=== PATIENT | female | born 1980 | race Two or more races ===

== ENCOUNTER 2016-08-26 09:12 | Emergency (ER) | payer MEDICAID ==
[2016-08-26 09:24] VITALS: TEMP 98.2; O2SAT 93
[2016-08-26 09:46] VITALS: BP 144/94; PULSE 90; RESP 16
--- NOTE | 2016-08-26 09:52 | UCPHY ---
H & P Patient Type: New Chief Complaint Nursing Narrative: hx asthma 3 weeks cough/uri symptoms Time Seen by Provider: 08/26/16 09:31 HPI/ROS: Chief complaint: Fever, cough, earache, asthma HPI: 36-year-old female with a history of asthma presenting with 3 weeks of worsening fevers and chills, sinus congestion, earache, sore throat, cough and worsening asthma symptoms. Patient states she has a fever to 101 at home the last few days. Cough is nonproductive. She has had some body aches. She has been using her albuterol inhaler with increased frequency and has run out at this point. Has had some mild shortness of breath. No nausea or vomiting. No chest pain. No abdominal pain. No skin rashes. ROS: 10 point Review of Systems is negative except as noted in the HPI. Physical exam: Gen: Awake, Alert, No Distress HEENT: Nose: no rhinorrhea Eyes: PERRLA, EOMI Mouth: Moist mucosa Neck: Supple, no JVD Chest: nontender, diffuse mild expiratory wheezing particularly at the bases, no focal rhonchi Heart: S1, S2 normal, no murmur Abd: Soft, non-tender, no guarding Back: no CVA tenderness, no midline tenderness Ext: no edema, non-tender Skin: no rash Neuro: CN II-XII intact, Sensation grossly intact, Strength 5/5 in bilateral upper and lower extremities - Personal History LMP (Females 10-55): Over 28 Days Ago Current Tetanus/Diphtheria Vaccine: Unsure - Medical/Surgical History Hx Asthma: Yes Hx Chronic Respiratory Disease: No Hx Diabetes: No Hx Cardiac Disease: No Hx Renal Disease: No Hx Cirrhosis: No Hx Alcoholism: No Hx HIV/AIDS: No Hx Splenectomy or Spleen Trauma: No Other PMH: anemia - Family History Significant Family History: No pertinent family hx - Social History Smoking Status: Never smoked Constitutional: Initial Vital Signs Temperature (C) 36.8 C 08/26/16 09:20 Heart Rate 96 08/26/16 09:20 Respiratory Rate 18 08/26/16 09:20 Blood Pressure 200/108 H 08/26/16 09:20 O2 Sat (%) 93 08/26/16 09:20 O2 Delivery Mode Room Air Allergies/Adverse Reactions: acetaminophen [From Vicodin] Allergy (Verified 08/26/16 09:19) hydrocodone bitartrate [From Vicodin] Allergy (Verified 08/26/16 09:19) promethazine HCl [From Phenergan] Allergy (Verified 08/26/16 09:19) Sulfa (Sulfonamide Antibiotics) Allergy (Verified 08/26/16 09:18) Home Medications: Medication Instructions Recorded AZITHROMYCIN [Z-PACK] 250 mg PO DAILY #6 tab 08/26/16 Advair 500/50 (*) 08/26/16 Albuterol 08/26/16 Albuterol [Ventolin Hfa Inhaler] 200 puffs IH Q4 #1 mdi 08/26/16 Celexa 08/26/16 Guaifenesin/Codeine Phos [Codeine 10 ml PO Q4 #1 liquid 08/26/16 10 mg-Guai 300 mg Liq] ZYRTEC 08/26/16 Departure - Departure Disposition: Home, Routine, Self-Care Clinical Impression: Bronchitis, Asthma Instructions: Acute Bronchitis (ED), Bronchospasm (ED) Additional Instructions: Take your full course of antibiotics. Return Urgent Care go to a emergency department for worsening shortness of breath, fevers, chills, nausea, vomiting, or any other concerns. Follow up at [facility] in 3-4 days if symptoms are not improving. Referrals: NONE *PRIMARY CARE P,. [Primary Care Provider] - As per Instructions [facility] [Outside] - As per Instructions Prescriptions: Guaifenesin/Codeine Phos [Codeine 10 mg-Guai 300 mg Liq] 10 ml PO Q4 #1 liquid Albuterol [Ventolin Hfa Inhaler] 200 puffs IH Q4 #1 mdi AZITHROMYCIN [Z-PACK] 250 mg PO DAILY #6 tab - PQRS PQRS Measurement: NA
== END 2016-08-26 09:56 | disposition home or self-care (01) ==
LOC: CED 09:12
DX: J45.909 Unspecified asthma, uncomplicated (principal)
CPT/HCPCS: 99204-PO; G0463-PO

== ENCOUNTER 2017-02-04 20:16 | Emergency (ER) | payer MEDICAID ==
[2017-02-04 20:38] VITALS: BP 135/95; PULSE 89; RESP 16; TEMP 99; O2SAT 96
--- NOTE | 2017-02-04 21:21 | EDPHY ---
H & P Stated Complaint: 1-2 wks of left neck gland swelling . N/D/VAZQUEZ/fever on/off Time Seen by Provider: 02/04/17 20:21 HPI/ROS: CHIEF COMPLAINT: Left jaw swelling History by patient HISTORY OF PRESENT ILLNESS: 28-year-old woman presents complaining of painful lump at the angle of her left jaw which she says has been there for about 10 days. She describes it as painful and tender to touch. She has had some relief from ibuprofen. She has had some intermittent fevers and felt sweaty. She has also had diarrhea for the past several days. It is also sees who with a sore throat. She denies any tooth pain or recent dental work. She has a history of chronic muscle pain for which she has been on Percocet in the past. She is currently between primary care physicians. REVIEW OF SYSTEMS: As in HPI, and all other systems reviewed and are negative Source: Patient - Personal History LMP (Females 10-55): Unknown Current Tetanus/Diphtheria Vaccine: Unsure Current Tetanus Diphtheria and Acellular Pertussis (TDAP): Unsure - Medical/Surgical History Hx Asthma: Yes Hx Chronic Respiratory Disease: No Hx Diabetes: No Hx Cardiac Disease: No Hx Renal Disease: No Hx Cirrhosis: No Hx Alcoholism: No Hx HIV/AIDS: No Hx Splenectomy or Spleen Trauma: No Other PMH: anemia/Asthma /allergies seasonal. Uterine ablation. Medicinal marijuana. anxiety. csec x2 //tonsilectomy - Family History Significant Family History: No pertinent family hx - Social History Smoking Status: Current some day smoker - Physical Exam Exam: General Appearance: Alert and no distress. Obese Head: normocephalic, atraumatic, no sinus tenderness Eyes: Pupils equal and round no injection. Ears: TM clear bilat Positive 2 x 2 tender swollen mass at the angle of the left jaw, no redness OP: mucus membranes moist, no tonsillar enlargement, no exudates, no purulence from parotid duct Neck: no meningismus, no cervical nodes, no submandibular nodes Respiratory: Chest is nontender, lungs are clear to auscultation. Cardiac: regular rate and rhythm. Gastrointestinal: Abdomen is soft and nontender, no masses, bowel sounds normal. Musculoskeletal: Neck is supple and nontender. Extremities have full range of motion and are nontender. Skin: No rashes or lesions. Constitutional: Initial Vital Signs Temperature (C) 37.2 C 02/04/17 20:32 Heart Rate 89 02/04/17 20:32 Respiratory Rate 16 02/04/17 20:32 Blood Pressure 135/95 H 02/04/17 20:32 O2 Sat (%) 96 02/04/17 20:32 O2 Delivery Mode Room Air Allergies/Adverse Reactions: acetaminophen [From Vicodin] Allergy (Verified 02/04/17 20:38) hydrocodone bitartrate [From Vicodin] Allergy (Verified 02/04/17 20:38) promethazine HCl [From Phenergan] Allergy (Verified 02/04/17 20:38) Sulfa (Sulfonamide Antibiotics) Allergy (Verified 02/04/17 20:38) Home Medications: Medication Instructions Recorded Advair 500/50 (*) 08/26/16 Albuterol 08/26/16 Albuterol [Ventolin Hfa Inhaler] 200 puffs IH Q4 #1 mdi 08/26/16 Celexa 08/26/16 ZYRTEC 08/26/16 Cephalexin 500 mg PO TID #40 tablet 02/04/17 Prilosec 20 mg 02/04/17 Sudafed 30mg (OTC) 02/04/17 Medical Decision Making ED Course/Re-evaluation: 28-year-old woman presents with painful swollen lump at her left trauma with clinical picture of parotid stone and/or mild silaadenitis. Patient is afebrile here and hemodynamically stable and nontoxic-appearing. We will start her on Keflex and we discussed conservative measures such as sucking on sour candy. I recommended continuing Tylenol and ibuprofen for pain. Patient has been on chronic Percocet in the past for chronic pain and we discussed that this is not a good or safe medicine for chronic conditions. Patient is referred to ENT if she has persistent or worsening symptoms. Departure - Departure Disposition: Home, Routine, Self-Care Clinical Impression: Sialadenitis Condition: Good Instructions: Sialoadenitis (ED) Additional Instructions: You were seen by Dr. Simi Nick today. Return for any worsening or new concerns. Take Keflex as directed. Suck on sour things such as lemon drops. Take Tylenol and ibuprofen as needed for pain as well as applying warm compresses. Follow up with Ear Nose Throat specialist, Dr. Navarro, if you do not improve or there is worsening. Take probiotics once daily in between doses antibiotics. Referrals: NONE *PRIMARY CARE P,. [Primary Care Provider] - As per Instructions Yuliya Navarro MD [Medical Doctor] - As per Instructions Prescriptions: Cephalexin 500 mg PO TID #40 tablet
[2017-02-04] MEDS ORDERED: ACETAMINOPHEN 325 MG TAB PO ONE (21:32)
[2017-02-04] MEDS ORDERED: CEPHALEXIN 500MG PREPACK#4 BTL TAKEHOME ONE (21:32)
[2017-02-04] MEDS ORDERED: ACETAMINOPHEN 500 MG TAB ONE (21:34)
== END 2017-02-04 21:45 | disposition home or self-care (01) ==
LOC: CED 20:16
DX: K11.20 Sialoadenitis, unspecified (principal); J45.909 Unspecified asthma, uncomplicated; F17.200 Nicotine dependence, unspecified, uncomplicated

== ENCOUNTER 2017-09-27 19:36 | Emergency (ER) | payer MEDICAID ==
[2017-09-27] MEDS ORDERED: IPRATROPIUM/ALBUTEROL 3 ML DEYVIAL IH ONE (19:55)
[2017-09-27] MEDS ORDERED: predniSONE 20 MG TAB PO ONE (19:55)
--- NOTE | 2017-09-27 19:58 | EDPHY ---
H & P Stated Complaint: trouble breathing in asthmatic pt x 2 weeks. inhalers/nebs not helping. Time Seen by Provider: 09/27/17 19:39 HPI/ROS: Chief Complaint: Difficulty breathing HPI: 37-year-old woman with a history of asthma presenting with 2 weeks of worsening difficulty breathing and wheezing. She states her normal inhalers have not been helping. She has been compliant with her usual asthma medications. Symptoms feel similar to prior bronchitis exacerbations of her asthma. No fevers or chills. Cough is nonproductive. Some shortness of breath with exertion. No chest pain. No nausea or vomiting. Also complaining of some mild right ear pain. She did take a prednisone burst 2 weeks ago for 3 days with mild improvement. She is not currently seen by [facility], she is to be seen at [facility] stopped going. She does have a local primary care physician. ROS: 10 point Review of Systems is negative except as noted in the HPI. PMH: Asthma Social History: No smoking, no alcohol, no recreational drug use Family History: non-contributory Physical Exam: Gen: Awake, Alert, No Distress HEENT: Ears: Bilateral TMs are normal Nose: no rhinorrhea Eyes: PERRLA, EOMI Mouth: Moist mucosa Neck: Supple, no JVD Chest: nontender, no focal rales or rhonchi, diffuse expiratory wheezing Heart: S1, S2 normal, no murmur Abd: Soft, non-tender, no guarding Back: no CVA tenderness, no midline tenderness Ext: no edema, non-tender Skin: no rash Neuro: CN II-XII intact, Sensation grossly intact, Strength 5/5 in bilateral upper and lower extremities - Personal History LMP (Females 10-55): Hysterectomy Current Tetanus Diphtheria and Acellular Pertussis (TDAP): Unsure - Medical/Surgical History Hx Asthma: Yes Hx Chronic Respiratory Disease: No Hx Diabetes: No Hx Cardiac Disease: No Hx Renal Disease: No Hx Cirrhosis: No Hx Alcoholism: No Hx HIV/AIDS: No Hx Splenectomy or Spleen Trauma: No Other PMH: anemia/Asthma /allergies seasonal. Uterine ablation. Medicinal marijuana. anxiety. csec x2 //tonsilectomy. internal hemorrhoids/abscess. fallopian tubes removed - Social History Smoking Status: Former smoker Constitutional: Initial Vital Signs Temperature (C) 37.3 C 09/27/17 19:50 Heart Rate 90 02/28/18 19:50 Respiratory Rate 22 H 09/27/17 19:50 Blood Pressure 125/87 H 09/27/17 19:50 O2 Sat (%) 90 L 09/27/17 19:50 O2 Delivery Mode Room Air Allergies/Adverse Reactions: acetaminophen [From Vicodin] Allergy (Verified 09/27/17 19:48) hydrocodone bitartrate [From Vicodin] Allergy (Verified 09/27/17 19:48) promethazine HCl [From Phenergan] Allergy (Verified 09/27/17 19:48) Sulfa (Sulfonamide Antibiotics) Allergy (Verified 09/27/17 19:48) Home Medications: Medication Instructions Recorded Advair 500/50 (*) 08/26/16 Albuterol 08/26/16 Albuterol [Ventolin Hfa Inhaler] 200 puffs IH Q4 #1 mdi 08/26/16 Celexa 08/26/16 ZYRTEC 08/26/16 BUPRENORPHINE/NALOXONE 8mg/2mg 09/27/17 [SUBOXONE 8mg/2mg] Fluticasone Nasal [Flonase Nasal 09/27/17 [place]] Montelukast Sodium [Singulair 10 09/27/17 mg (*)] Nebulizer and Compressor [Ombra 1 each MC Q4 PRN #1 each 09/27/17 Compressor System] predniSONE 60 mg PO DAILY #15 tab 09/27/17 Medical Decision Making ED Course/Re-evaluation: Patient is improved after nebulizer. Lungs are clear. Will start her on a course of prednisone. She also needs new nebulizer chest prescribed. I have also given her a spacer for use with her inhalers. She will follow up with primary care physician for re-evaluation in several days. - Data Points Medications Given: Discontinued Medications Albuterol/Ipratropium (Duoneb) 3 ml IH EDNOW ONE Stop: 09/27/17 19:56 Last Admin: 09/27/17 20:01 Dose: 3 ml Prednisone (Prednisone) 60 mg PO EDNOW ONE Stop: 09/27/17 19:56 Last Admin: 09/27/17 20:01 Dose: 60 mg Departure - Departure Disposition: Home, Routine, Self-Care Clinical Impression: Exacerbation of asthma Condition: Good Instructions: Asthma (ED) Additional Instructions: Please take her full course of prednisone. You may use your albuterol inhaler or nebulizer every 2 hr as needed for wheeze or cough. Always use a spacer when you use your inhaler. Follow up with your primary care physician in 2-3 days for further evaluation. Return to the emergency department for increasing shortness of breath, cough, wheeze, or any other concerns. Referrals: Kirsty Paez MD [Primary Care Provider] - As per Instructions Stand Alone Forms: Work Excuse Prescriptions: Nebulizer and Compressor [Ombra Compressor System] 1 each MC Q4 PRN #1 each PRN Reason: Wheezing predniSONE 60 mg PO DAILY #15 tab
[2017-09-27 20:44] VITALS: BP 127/85; PULSE 77; RESP 16; TEMP 98.1; O2SAT 97
== END 2017-09-27 20:43 | disposition home or self-care (01) ==
LOC: CED 19:36
DX: J45.901 Unspecified asthma with (acute) exacerbation (principal); Z87.891 Personal history of nicotine dependence
CPT/HCPCS: J7512

== ENCOUNTER 2017-09-28 21:36 | Observation (INO) | payer MEDICAID ==
[2017-09-28] MEDS ORDERED: ONDANSETRON 4 MG/2 ML VIAL ONE (22:00)
[2017-09-28] MEDS ORDERED: NS 1,000 ML IV ONE (22:17)
[2017-09-28] MEDS ORDERED: ONDANSETRON 4 MG/2 ML VIAL IVP ONE (22:22)
[2017-09-28 23:09] LABS: PLATELET COUNT 393 10^3/uL (150-400)
[2017-09-28] MEDS ORDERED: METOCLOPRAMIDE 10 MG/2 ML VIAL IVP ONE (23:10)
[2017-09-28] MEDS ORDERED: IPRATROPIUM/ALBUTEROL 3 ML DEYVIAL ONE (23:29)
[2017-09-28] MEDS ORDERED: IPRATROPIUM/ALBUTEROL 3 ML DEYVIAL IH ONE (23:32)
[2017-09-28] MEDS ORDERED: methylPREDNISolone SOD SUCC 125 MG/2 ML VIAL IVP ONE (23:34)
--- NOTE | 2017-09-28 23:39 | EDPHY ---
H & P Stated Complaint: nausea headache Time Seen by Provider: 09/28/17 22:51 HPI/ROS: This patient presents with vomiting, headache and ongoing wheezing. She was seen here yesterday for asthma exacerbation with an O2 sat of 90% on room air at that time given a dose of prednisone 60 mg and neb with improvement. However , this morning she noted onset of frontal headache sharp and throbbing in nature with nausea and intermittent vomiting. She had associated photophobia. The headache worsened with movement. The only other time she had a headache like this was when she had preeclampsia during . She tolerated her morning Suboxone dose but did not take her prednisone due to the symptoms. She presented here by private vehicle due to the 01/07 frontal headache nausea vomiting and ongoing wheezing. On presentation here was noted to have an O2 sat of 85% room air tonight placed on 1 L supplemental O2 with O2 sats in the mid 90s. She was driven in by her spouse by private vehicle for further evaluation. ROS: She reports low-grade subjective fevers and chills. She has no other constitutional symptoms HEENT: No nasal congestion or sinus pain. She has a mild sore throat. Pulmonary: Ongoing wheezing and dyspnea. No pleuritic pain. No hemoptysis. Cardiovascular: No lightheadedness GI: No abdominal pain. Nausea vomiting as above. Normal bowel movements. : No urinary symptoms. She is amenorrheic due to uterine ablation Musculoskeletal: Patient complains of chronic leg pain. Psychiatric: This patient had been on significant doses of opiates for chronic pain and is being seen [facility] was started on Suboxone 2 weeks ago. They just increased her dose 2 days ago to 12 mg Suboxone 2 times a day. Neuro: No numbness tingling. She reports no confusion. No focal weakness. No vision changes. She states this headache is similar to previous headaches. Complete ROS is otherwise negative. Source: Patient Exam Limitations: No limitations - Personal History LMP (Females 10-55): Unknown Current Tetanus/Diphtheria Vaccine: Yes Current Tetanus Diphtheria and Acellular Pertussis (TDAP): Yes - Medical/Surgical History Hx Asthma: Yes Hx Chronic Respiratory Disease: No Hx Diabetes: No Hx Cardiac Disease: No Hx Renal Disease: No Hx Cirrhosis: No Hx Alcoholism: No Hx HIV/AIDS: No Hx Splenectomy or Spleen Trauma: No Other PMH: anemia/Asthma /allergies seasonal. Uterine ablation. Medicinal marijuana. anxiety. csec x2 //tonsilectomy. internal hemorrhoids/abscess. fallopian tubes removed - Family History Significant Family History: No pertinent family hx - Social History Smoking Status: Former smoker Alcohol Use: Occasionally Drug Use: None - Physical Exam Exam: General Appearance: Pleasant obese female, Alert, no distress. Eyes: Pupils equal and round no pallor or injection. ENT, Mouth: Mucous membranes moist. Respiratory: Mild rales right midlung base. Bilateral wheezing-mild Cardiovascular: Regular rate and rhythm. No murmur gallop rub. No leg tenderness or swelling. Gastrointestinal: Abdomen is soft and nontender, no masses, bowel sounds normal. Neurological: GCS 15. Skin: Warm and dry, no rashes. Musculoskeletal: Neck is supple nontender. Extremities are symmetrical, full range of motion. Psychiatric: Mood and affect normal DIFFERENTIAL DIAGNOSIS: After history and physical exam differential diagnosis was considered for pneumonia, bronchitis, asthma exacerbation, hypoxia, headache related to hypoxia, tension headache, migraine headache, viral illness Constitutional: Initial Vital Signs Temperature (C) 36.9 C 09/28/17 21:49 Heart Rate 86 09/28/17 21:49 Respiratory Rate 16 09/28/17 21:49 Blood Pressure 121/84 H 09/28/17 21:49 O2 Sat (%) 85 L 09/28/17 21:49 O2 Delivery Mode Nasal Cannula O2 (L/minute) 1.5 Allergies/Adverse Reactions: acetaminophen [From Vicodin] Allergy (Verified 09/28/17 21:51) hydrocodone bitartrate [From Vicodin] Allergy (Verified 09/28/17 21:51) promethazine HCl [From Phenergan] Allergy (Verified 09/28/17 21:51) Sulfa (Sulfonamide Antibiotics) Allergy (Verified 09/28/17 21:51) Home Medications: Medication Instructions Recorded Advair 500/50 (*) 08/26/16 Albuterol 08/26/16 Albuterol [Ventolin Hfa Inhaler] 200 puffs IH Q4 #1 mdi 08/26/16 Celexa 08/26/16 ZYRTEC 08/26/16 BUPRENORPHINE/NALOXONE 8mg/2mg 09/27/17 [SUBOXONE 8mg/2mg] Fluticasone Nasal [Flonase Nasal 09/27/17 [place]] Montelukast Sodium [Singulair 10 09/27/17 mg (*)] Nebulizer and Compressor [Ombra 1 each MC Q4 PRN #1 each 09/27/17 Compressor System] predniSONE 60 mg PO DAILY #15 tab 09/27/17 Medical Decision Making - Diagnostics Imaging Results: Imaging Impressions Chest X-Ray 09/28/17 22:23 Impression: Normal. Three-view chest x-ray: Normal except for On lateral view-question atelectasis versus subtle infiltrate by my read Imaging: I viewed and interpreted images myself ED Course/Re-evaluation: IV, normal saline bolus Review of the patient's labs reveals leukocytosis with white count 12 in half with left shift, basic metabolic panel is normal, D-dimer is negative This peak flow is low at 340 with predicted of 450 DuoNeb followed by albuterol neb Solu-Medrol 125 IV For patient's nausea -4 mg of Zofran initially with partial relief For migraine-like headache-Reglan and Benadryl IV and Toradol 30 mg IV with near resolution of headache. For respiratory infection-ceftriaxone 1 g IV and doxycycline 100 mg p.o. Discussion: Patient with subjective fevers and chills, elevated white count, right midlung field rales on exam. Patient's O2 sat on room air continued to be quite low despite treatment-low 80s - 81% 85%. Given persistent hypoxia in this patient with bronchitis versus bronchopneumonia that warrants admission overnight for further stabilization. Her findings are not consistent with sepsis. I counseled her regarding this. Answered all the patient's questions prior to transfer. They are comfortable with plan for admission to [facility]. Patient remained stable on supplemental nasal cannula O2 satting in the mid 90s on 1 or [address] Delgado-hospitalist on-call who accepts patient for transfer to [facility] bed. - Data Points Laboratory Results: Laboratory Results 09/28/17 22:15 09/28/17 22:15 09/28/17 09/28/17 09/28/17 22:15 22:15 22:15 WBC 12.69 10^3/uL H 10^3/uL (3.80-9.50) RBC 4.64 10^6/uL 10^6/uL (4.18-5.33) Hgb 13.4 g/dL g/dL (12.6-16.3) Hct 41.1 % % (38.0-47.0) MCV 88.6 fL fL (81.5-99.8) MCH 28.9 pg pg (27.9-34.1) MCHC 32.6 g/dL g/dL (32.4-36.7) RDW 15.1 % % (11.5-15.2) Plt Count 393 10^3/uL 10^3/uL (150-400) MPV 10.1 fL fL (8.7-11.7) Neut % (Auto) 75.8 % H % (39.3-74.2) Lymph % (Auto) 18.0 % % (15.0-45.0) [place] % (Auto) 4.8 % % (4.5-13.0) Eos % (Auto) 0.6 % % (0.6-7.6) Baso % (Auto) 0.2 % L % (0.3-1.7) Nucleat RBC Rel Count 0.0 % % (0.0-0.2) Absolute Neuts (auto) 9.61 10^3/uL H 10^3/uL (1.70-6.50) Absolute Lymphs (auto) 2.28 10^3/uL 10^3/uL (1.00-3.00) Absolute Monos (auto) 0.61 10^3/uL 10^3/uL (0.30-0.80) Absolute Eos (auto) 0.08 10^3/uL 10^3/uL (0.03-0.40) Absolute Basos (auto) 0.03 10^3/uL 10^3/uL (0.02-0.10) Absolute Nucleated RBC 0.00 10^3/uL 10^3/uL (0-0.01) Immature Gran % 0.6 % % (0.0-1.1) Immature Gran # 0.08 10^3/uL 10^3/uL (0.00-0.10) D-Dimer < 0.27 ug/mLFEU ug/mLFEU (0.00-0.50) Sodium 138 mEq/L mEq/L (135-145) Potassium 5.0 mEq/L mEq/L (3.5-5.2) Chloride 101 mEq/L mEq/L (97-110) Carbon Dioxide 25 mEq/l mEq/l (22-31) Anion Gap 12 mEq/L mEq/L (8-16) BUN 18 mg/dL mg/dL (7-23) Creatinine 0.7 mg/dL mg/dL (0.6-1.0) Estimated GFR > 60 Glucose 90 mg/dL mg/dL (70-100) Calcium 9.1 mg/dL mg/dL (8.5-10.4) Medications Given: Discontinued Medications Albuterol (Proventil Neb) 3 ml IH EDNOW ONE Stop: 09/28/17 23:43 Last Admin: 09/28/17 23:45 Dose: 3 ml Albuterol/Ipratropium (Duoneb) 3 ml IH EDNOW ONE Stop: 09/28/17 23:33 Last Admin: 09/28/17 23:32 Dose: 3 ml Diphenhydramine HCl (Benadryl Injection) 25 mg IVP EDNOW ONE Stop: 09/28/17 23:12 Last Admin: 09/28/17 23:25 Dose: 25 mg Doxycycline Hyclate (Doxycycline Hyclate) 100 mg PO EDNOW ONE PRN Reason: Protocol Stop: 09/28/17 23:41 Last Admin: 09/28/17 23:44 Dose: 100 mg Sodium Chloride (Ns) 1,000 mls @ 0 mls/hr IV ONCE ONE PRN Reason: Wide Open Stop: 09/28/17 22:18 Last Admin: 09/28/17 22:18 Dose: 1,000 mls Ceftriaxone Sodium 1 gm/ (Sterile Water) 10 mls @ 150 mls/hr IV EDNOW ONE PRN Reason: Protocol Stop: 09/29/17 00:26 Last Admin: 09/29/17 00:33 Dose: 10 mls Ketorolac Tromethamine (Toradol) 30 mg IVP EDNOW ONE Stop: 09/29/17 00:32 Last Admin: 09/29/17 00:34 Dose: 30 mg Methylprednisolone Sodium Succinate (Solu-Medrol) 125 mg IVP EDNOW ONE Stop: 09/28/17 23:35 Last Admin: 09/28/17 23:36 Dose: 125 mg Metoclopramide HCl (Reglan Injection) 5 mg IVP EDNOW ONE Stop: 09/28/17 23:11 Last Admin: 09/28/17 23:24 Dose: 5 mg Ondansetron HCl (Zofran) 4 mg IVP EDNOW ONE Stop: 09/28/17 22:23 Last Admin: 09/28/17 22:23 Dose: 4 mg Departure - Departure Disposition: Home, Routine, Self-Care Clinical Impression: Hypoxia Acute bronchitis Qualifiers: Bronchitis organism: unspecified organism Qualified Code(s): J20.9 - Acute bronchitis, unspecified Asthma exacerbation Qualifiers: Asthma severity: moderate Asthma persistence: persistent Qualified Code(s): J45.41 - Moderate persistent asthma with (acute) exacerbation Acute headache Qualifiers: Headache type: unspecified Intractability: not intractable Qualified Code(s): R51 - Headache Condition: Fair
[2017-09-28] MEDS ORDERED: DOXYCYCLINE HYCLATE 100 MG CAP/TAB PO ONE (23:40)
[2017-09-28] MEDS ORDERED: ALBUTEROL 3 ML DEYVIAL IH ONE (23:42)
[2017-09-29] MEDS ORDERED: cefTRIAXone 1 GM in STERILE WATER INJ 10 ML IV ONE (00:23)
[2017-09-29] MEDS ORDERED: ONDANSETRON DISINTEGRATING 4 MG TAB PO PRN (00:30)
[2017-09-29] MEDS ORDERED: ALBUTEROL 3 ML DEYVIAL IH PRN (00:30)
[2017-09-29] MEDS ORDERED: cefTRIAXone 1 GM/DEXTROSE 1 GM/50 ML BAG IV ONE (00:30)
[2017-09-29] MEDS ORDERED: KETOROLAC 30 MG/1 ML SDV IVP ONE (00:31)
--- NOTE | 2017-09-29 02:48 | PDGENHP ---
History and Physical - Chief Complaint Nausea - History of Present Illness 37 yo obese F w/ asthma presents with nausea. Patient states she felt poorly today marked by nausea and fatigue. She went to the ED where she was found to be hypoxic (85% on RA) and therefore sent to [facility] for observation. Patient has asthma and this has been poorly controlled lately. She had an exacerbation about 1 month ago treated with steroids. She had some improvement after that but continued to feel "tight" for the following weeks. She again presented to [facility] yesterday and was prescribed steroids for what was felt to be a repeat exacerbation. Per the ED, she received 3 nebs today due to wheezing. Her symptoms have improved by the time of my evaluation. She denies fever, chills, and cough. History Information - Allergies/Home Medication List Allergies/Adverse Reactions: acetaminophen [From Vicodin] Allergy (Verified 09/28/17 21:51) hydrocodone bitartrate [From Vicodin] Allergy (Verified 09/28/17 21:51) promethazine HCl [From Phenergan] Allergy (Verified 09/28/17 21:51) Sulfa (Sulfonamide Antibiotics) Allergy (Verified 09/28/17 21:51) Home Medications: Advair 500/50 (*) 08/26/16 [Last Taken Unknown] Albuterol 08/26/16 [Last Taken Unknown] Celexa 08/26/16 [Last Taken Unknown] ZYRTEC 08/26/16 [Last Taken Unknown] BUPRENORPHINE/NALOXONE 8mg/2mg [SUBOXONE 8mg/2mg] 09/27/17 [Last Taken Unknown] Fluticasone Nasal [Flonase Nasal [place]] 09/27/17 [Last Taken Unknown] Montelukast Sodium [Singulair 10 mg (*)] 09/27/17 [Last Taken Unknown] I have personally reviewed and updated: family history, medical history - Past Medical History asthma - Family History Positive for: cancer - Social History Smoking Status: Never smoked Alcohol Use: Occasionally Drug Use: None Review of Systems Review of Systems: ROS: 10pt was reviewed & negative except for what was stated in HPI & below Physical Exam Physical Exam: Temp Pulse Resp BP Pulse Ox 36.8 C 80 16 108/70 92 09/29/17 02:25 09/29/17 02:25 09/29/17 02:25 09/29/17 02:25 09/29/17 02:25 O2 (L/minute) 1 Constitutional: no apparent distress, obese Eyes: PERRL, EOMI Ears, Nose, Mouth, Throat: moist mucous membranes, no oral mucosal ulcers Cardiovascular: regular rate and rhythym, no murmur, rub, or gallop Respiratory: no respiratory distress, clear to auscultation Gastrointestinal: normoactive bowel sounds, soft, non-tender abdomen Skin: warm, normal color Musculoskeletal: full muscle strength, no muscle tenderness Neurologic: AAOx3, CN II-XII Intact Psychiatric: interacting appropriately, not anxious Lab Data & Imaging Review 09/28/17 22:15 09/28/17 22:15 WBC 12.69 10^3/uL (3.80-9.50) H 09/28/17 22:15 RBC 4.64 10^6/uL (4.18-5.33) 09/28/17 22:15 Hgb 13.4 g/dL (12.6-16.3) 09/28/17 22:15 Hct 41.1 % (38.0-47.0) 09/28/17 22:15 MCV 88.6 fL (81.5-99.8) 09/28/17 22:15 MCH 28.9 pg (27.9-34.1) 09/28/17 22:15 MCHC 32.6 g/dL (32.4-36.7) 09/28/17 22:15 RDW 15.1 % (11.5-15.2) 09/28/17 22:15 Plt Count 393 10^3/uL (150-400) 09/28/17 22:15 MPV 10.1 fL (8.7-11.7) 09/28/17 22:15 Neut % (Auto) 75.8 % (39.3-74.2) H 09/28/17 22:15 Lymph % (Auto) 18.0 % (15.0-45.0) 09/28/17 22:15 [place] % (Auto) 4.8 % (4.5-13.0) 09/28/17 22:15 Eos % (Auto) 0.6 % (0.6-7.6) 09/28/17 22:15 Baso % (Auto) 0.2 % (0.3-1.7) L 09/28/17 22:15 Nucleat RBC Rel Count 0.0 % (0.0-0.2) 09/28/17 22:15 Absolute Neuts (auto) 9.61 10^3/uL (1.70-6.50) H 09/28/17 22:15 Absolute Lymphs (auto) 2.28 10^3/uL (1.00-3.00) 09/28/17 22:15 Absolute Monos (auto) 0.61 10^3/uL (0.30-0.80) 09/28/17 22:15 Absolute Eos (auto) 0.08 10^3/uL (0.03-0.40) 09/28/17 22:15 Absolute Basos (auto) 0.03 10^3/uL (0.02-0.10) 09/28/17 22:15 Absolute Nucleated RBC 0.00 10^3/uL (0-0.01) 09/28/17 22:15 Immature Gran % 0.6 % (0.0-1.1) 09/28/17 22:15 Immature Gran # 0.08 10^3/uL (0.00-0.10) 09/28/17 22:15 D-Dimer < 0.27 ug/mLFEU (0.00-0.50) 09/28/17 22:15 Sodium 138 mEq/L (135-145) 09/28/17 22:15 Potassium 5.0 mEq/L (3.5-5.2) 09/28/17 22:15 Chloride 101 mEq/L (97-110) 09/28/17 22:15 Carbon Dioxide 25 mEq/l (22-31) 09/28/17 22:15 Anion Gap 12 mEq/L (8-16) 09/28/17 22:15 BUN 18 mg/dL (7-23) 09/28/17 22:15 Creatinine 0.7 mg/dL (0.6-1.0) 09/28/17 22:15 Estimated GFR > 60 09/28/17 22:15 Glucose 90 mg/dL (70-100) 09/28/17 22:15 Calcium 9.1 mg/dL (8.5-10.4) 09/28/17 22:15 Imaging Review: Imaging Impressions Chest X-Ray 09/28/17 22:23 Impression: Normal. Assessment & Plan Assessment: 37 yo F w/ poorly controlled asthma presents with hypoxia. Plan: 1. AHRF - I suspect this is multifactorial from poorly controlled asthma in combination with [place]/OHS and atelectasis. CXR and clinical picture not consistent with pneumonia. - Asthma treatment as below - Incentive spirometer, encouraged ambulation - Wean O2 as able - Observer off of antibiotics, check procalcitonin 2. Moderate, persistent asthma, poorly controlled - Has had 2 exacerbations in the last month, although they appear to have been rather mild. She was started on course of prednisone on the day prior to admission for repeated wheezing at the [facility]. - Will continue prednisone burst to complete 5 day course - Continue home [facility] - She is in between doctors right now but would benefit from a Medical Physicist noting difficult to control asthma despite multiple controller therapies 3. Obesity - Recommended patient pursue sleep study once she finds a new PCP. Diet - Regular Code - Full Ppx - LMWH Dispo - Admit under observation status
[2017-09-29] MEDS: ONDANSETRON 4 MG/2 ML VIAL IVP PRN ×2 (06:10→12:16)
[2017-09-29] MEDS: ACETAMINOPHEN 325 MG TAB PO PRN ×2 (06:20→15:45)
[2017-09-29 08:40] VITALS: PULSE 69; RESP 15; TEMP 98.8
[2017-09-29] MEDS ORDERED: ENOXAPARIN 40 MG/0.4 ML SYR SC SCH (09:00)
[2017-09-29] MEDS ORDERED: ALBUTEROL 60 PUFFS/8 GM MDI IH PRN (10:06)
[2017-09-29] MEDS ORDERED: predniSONE 20 MG TAB PO SCH (10:15)
[2017-09-29] MEDS ORDERED: NON-FORMULARY NEW DRUG (Citalopram Hydrobromide [Celexa] 40 MG) PO SCH (10:15)
[2017-09-29] MEDS ORDERED: CITALOPRAM 20 MG TAB PO SCH (10:15)
[2017-09-29] MEDS ORDERED: FLUTICASONE/SALMETER 500/50MCG DISKUS IH SCH (10:15)
[2017-09-29] MEDS ORDERED: MONTELUKAST SODIUM 10 MG TAB PO SCH (10:15)
[2017-09-29] MEDS ORDERED: FLUTICASONE NASAL 120 SPRAYS/16 GM MDI EACHNARE SCH (10:15)
[2017-09-29] MEDS ORDERED: NALOXONE HCL SL SCH ×3 (12:00→21:00)
[2017-09-29] MEDS ORDERED: BUPRENORPHINE HCL SL SCH ×3 (12:00→21:00)
[2017-09-29] MEDS ORDERED: [UNRECOGNIZED DRUG - OTHER] SL SCH ×2 (12:00→15:00)
[2017-09-29 12:11] VITALS: O2SAT 85
[2017-09-29 12:34] VITALS: BP 138/83
[2017-09-29] MEDS ORDERED: IOPAMIDOL (ISOVUE 370) 100 ML BTL IV ONE (13:56)
--- NOTE | 2017-09-29 15:48 | ASMTCASEMG ---
Living Arrangements What is your living Answers: With Spouse arrangement? Who do you live with? Type Of Residence What kind of residence do Answers: House you live in? Discharge Plan Comments Coordination Status Comments Notes: Pt is a 37 y/o female admitted for hypoxia. Pt will most likely d/c independent when medically stable. No therapies ordered at this time. CM available for changes. Plan: Independent Date Signed: 09/29/2017 03:48 PM Electronically Signed By:GURINDER Farooq
--- NOTE | 2017-09-29 17:19 | GDS ---
[f rep st] DISCHARGE SUMMARY DISCHARGE DIAGNOSES: 1. Suspected reactive airways disease. 2. Borderline obesity hypoventilation syndrome. 3. Mucous plugging. Please see admission history and physical by Dr. Víctor Bang. The patient presented with in creased work of breathing. She did not have wheezing. She is in the midst of a steroid burst for re active airways disease. She had an ABG showing mild hypoventilation with mild hypoxemia. She also h ad a CTA showing no pulmonary embolism but mucous plugging. The patient was discharged home with pulmonary toilet, prescription for Zofran, encouragement to lose weight. The physiology of obesity hypoventilation was explained to her. /[id number]/MODL
[2017-09-29] MEDS ORDERED: [UNRECOGNIZED DRUG - OTHER] SL SCH (21:00)
[2017-09-30] MEDS ORDERED: CETIRIZINE 10 MG TAB PO SCH (09:00)
== END 2017-09-29 18:07 | disposition home or self-care (01) ==
LOC: CED 21:36 → CEDHOLD 09-29 00:31 → F2W 09-29 02:06
PROVIDERS: ADMIT Student in an Organized Health Care Education/Training Program; ATTEND Student in an Organized Health Care Education/Training Program
DX: J45.40 Moderate persistent asthma, uncomplicated (principal); J98.09 Other diseases of bronchus, not elsewhere classified; R09.02 Hypoxemia; R51 Headache; F11.20 Opioid dependence, uncomplicated; F12.20 Cannabis dependence, uncomplicated; E66.9 Obesity, unspecified; Z68.35 Body mass index [BMI] 35.0-35.9, adult; F17.210 Nicotine dependence, cigarettes, uncomplicated
CPT/HCPCS: 71046; 71275; G0378; 80048-PO; 85025-PO; 85378-PO; 96374; J0696; J1200; J1650; J1885; J2405; J2765; J2930; J7512; Q9967

== ENCOUNTER 2017-10-20 10:27 | Emergency (ER) | payer MEDICAID ==
[2017-10-20] MEDS ORDERED: ONDANSETRON DISINTEGRATING 4 MG TAB PO ONE (11:16)
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
[2017-10-20 11:53] VITALS: PULSE 65; RESP 18
[2017-10-20 12:37] VITALS: BP 124/107; TEMP 98.6; O2SAT 96
== END 2017-10-20 12:35 | disposition home or self-care (01) ==
LOC: CED 10:27
DX: B34.9 Viral infection, unspecified (principal); J45.909 Unspecified asthma, uncomplicated
CPT/HCPCS: 71046-PO; 87400-PO

== ENCOUNTER 2018-07-22 21:15 | Emergency (ER) | payer MEDICAID ==
[2018-07-22] MEDS ORDERED: IPRATROPIUM/ALBUTEROL 3 ML DEYVIAL IH ONE (21:24)
[2018-07-22] MEDS ORDERED: ONDANSETRON DISINTEGRATING 4 MG TAB PO ONE ×2 (21:32)
--- NOTE | 2018-07-22 21:37 | EDPHY ---
H & P Stated Complaint: NAUSEA, VOMITING, HEADACHE, DIZZINESS, FATIGUE SINCE THIS MORNING Time Seen by Provider: 07/22/18 21:22 HPI/ROS: CHIEF COMPLAINT: Headache, nausea vomiting fatigue History by patient HISTORY OF PRESENT ILLNESS: 38-year-old woman with a history of asthma presents complaining of 24 hr of generalized fatigue, headache, left ear playing , nausea and vomiting. Patient is concerned she is dehydrated because she has vomited every time she has had either take small drinks of Gatorade. Patient had a root canal a couple days ago and is currently on amoxicillin for this. Patient states she stated amoxicillin in the past without giving her GI symptoms. She has had a mild nonproductive cough. She denies URI symptoms. She denies any ill contacts. She did not get a flu shot this year. She did not notice any trouble breathing or chest pain or pleuritic pain. She has not been using her albuterol inhaler today. The last time she was on steroids was 9 months ago. She has been admitted once for her asthma a year ago but not to the ICU. She sometimes smokes marijuana but not cigarettes. REVIEW OF SYSTEMS: As in HPI, and all other systems reviewed and are negative Source: Patient - Personal History Current Tetanus Diphtheria and Acellular Pertussis (TDAP): Yes - Medical/Surgical History Hx Asthma: Yes Hx Chronic Respiratory Disease: No Hx Diabetes: No Hx Cardiac Disease: No Hx Renal Disease: No Hx Cirrhosis: No Hx Alcoholism: No Hx HIV/AIDS: No Hx Splenectomy or Spleen Trauma: No Other PMH: anemia/Asthma /allergies seasonal. Uterine ablation. Medicinal marijuana. anxiety. csec x2 //tonsilectomy. internal hemorrhoids/abscess. fallopian tubes removed - Social History Smoking Status: Never smoked - Physical Exam Exam: General Appearance: Alert, morbidly obese, flat affect, speaking full sentences. Head: normocephalic, atraumatic Eyes: Pupils equal and round, reactive to light, no pallor or injection. Extraocular movements intact Mouth: Mucous membranes moist. Teeth are intact, no drainage, and gums are noninflamed. TM: Clear bilaterally Neck: Full range of motion, no meningismus, no cervical or submandibular adenopathy Respiratory: Normal, effort, lungs with scattered wheezes. No chest wall tenderness Cardiovascular: Regular rate and rhythm. S1, S2, no murmurs, gallops or rubs appreciated Gastrointestinal: Abdomen is soft and nontender, no masses, bowel sounds normal. Back: No CVA tenderness, no bony tenderness Neurological: Awake, alert and oriented x 3, no pronator drift, normal gait, no pronator drift Skin: Warm and dry, no rashes. Musculoskeletal: No deformities or tenderness. Full range of motion Extremities: no edema, no tenderness, DP2+ bilat Psychiatric: Patient has normal affect, there is no agitation. Constitutional: Initial Vital Signs Temperature (C) 36.9 C 07/22/18: Heart Rate 78 07/22/18 21: Respiratory Rate 16 07/22/18 21:18 Blood Pressure 149/102 H 07/22/18: O2 Sat (%) 91 L 07/22/18: O2 Delivery Mode Room Air O2 (L/minute) 2 Allergies/Adverse Reactions: hydrocodone bitartrate [From Vicodin] Allergy (Verified 09/28/17 21:51) promethazine HCl [From Phenergan] Allergy (Verified 09/28/17 21:51) Sulfa (Sulfonamide Antibiotics) Allergy (Verified 09/28/17 21:51) Home Medications: Medication Instructions Recorded Cetirizine [ZyrTEC 10 mg (*)] 10 mg PO DAILY 08/26/16 Citalopram Hydrobromide [Celexa] 40 mg PO DAILY 08/26/16 Fluticasone/Salmeter 500/50Mcg 1 puffs IH BID 08/26/16 [Advair 500/50 (*)] Fluticasone Nasal [Flonase Nasal 1 spray [place] BID 09/27/17 [place]] Montelukast Sodium [Singulair 10 10 mg PO DAILY 09/27/17 mg (*)] Albuterol [Proventil Inhaler HFA 1 - 2 puffs IH Q4H PRN 09/29/17 (*)] Buprenorphine HCl/Naloxone HCl 1.5 each SL BID@0700,1500 09/29/17 [Suboxone 8 mg-2 mg SL Film] Medical Decision Making - Diagnostics Imaging Results: Imaging Impressions Chest X-Ray 07/22/18 21:33 Impression: Mild bronchitis. ED Course/Re-evaluation: 38-year-old woman presents with headache, nausea vomiting fatigue and dizziness with oxygen saturation in the high 80s on room air at rest. Patient was noted to be wheezy on exam. Influenza swab was done. Patient was given DuoNeb and Zofran. On re-evaluation, patient's lungs were clear. Her oxygen saturations improved on 2 L. Chest x-ray showed no evidence of pneumonia. Influenza was negative. I went to re-evaluate the patient again and she was still complaining of headache, notably on her left side where she had the root canal done yesterday, and feeling hot and sweaty. Patient was noted to be diaphoretic. A repeat temperature at this time was 36.9 and the rest of her vital signs were stable. Will give the patient an oral fluid challenge and assess her off oxygen. On re-evaluation the diaphoresis and resolved. The patient was feeling better. She was taking oral fluids without difficulty. We are able to get her off oxygen her saturations remained stable around 93% on room air. I suspect the patient's presentations a combination of pain from her root canal, some wheezing and possibly an influenza like infection. In addition I think it is likely the patient has sleep apnea, given her body habitus, her history of snoring and her oxygen saturation improves when she is sitting up and talking versus when she is reclining. I am encouraging her to have an outpatient sleep study. We discussed home care and return precautions. Patient is discharged home in improved condition - Data Points Medications Given: Discontinued Medications Albuterol/Ipratropium (Duoneb) 3 ml IH EDNOW ONE Stop: 07/22/18 21:25 Last Admin: 07/22/18 21:28 Dose: 3 ml Ibuprofen (Motrin) 600 mg PO EDNOW ONE Stop: 07/22/18 21:47 Last Admin: 07/22/18 21:55 Dose: 600 mg Ondansetron HCl (Zofran Odt) 4 mg PO EDNOW ONE Stop: 07/22/18 21:33 Last Admin: 07/22/18 21:34 Dose: 4 mg Ondansetron HCl (Zofran Odt) 4 mg PO EDNOW ONE Stop: 07/22/18 21:33 Last Admin: 07/22/18 21:35 Dose: Not Given Point of Care Test Results: Influenza PCR Flu Nasal Swab Collection Date 07/22/18 Flu Nasal Swab Collection Time 21:35 Influenza A Result Not Detected Influenza B Result Not Detected Departure - Departure Disposition: Home, Routine, Self-Care Clinical Impression: Hypoxia, Influenza-like illness Headache Qualifiers: Headache type: unspecified Headache chronicity pattern: acute headache Intractability: not intractable Qualified Code(s): R51 - Headache Clinical Impression: (Ruled Out): Acute bronchitis Condition: Good Instructions: Influenza (ED) Additional Instructions: You were seen by Dr. Simi Nick today. I think her headache is related to your low oxygen and your root canal. I see no evidence of infection in her mouth currently pain continue to take Tylenol and/or ibuprofen as needed for pain. You may take Zofran as needed for nausea and vomiting. Please drink plenty of fluids. Use here albuterol inhaler and other asthma medicines as prescribed. I recommend close follow-up with her primary care physician and consideration of a sleep study. Return for any worsening or new concerns, including but not limited to inability to take fluids or medications, trouble breathing or other worsening. Referrals: Patient,NotPresent [Primary Care Provider] - As per Instructions
[2018-07-22] MEDS ORDERED: IBUPROFEN 600 MG TAB PO ONE (21:46)
[2018-07-22] MEDS ORDERED: ONDANSETRON 4MG PREPACK#2 BTL TAKEHOME ONE (22:48)
[2018-07-22 22:50] VITALS: BP 141/91
--- NOTE | 2018-07-23 01:13 | EDPHY ---
H & P Stated Complaint: NAUSEA, VOMITING, HEADACHE, DIZZINESS, FATIGUE SINCE THIS MORNING Time Seen by Provider: 07/22/18 21:22 HPI/ROS: CHIEF COMPLAINT: [ ] HISTORY OF PRESENT ILLNESS: [ ] P: Q: R: S: T: REVIEW OF SYSTEMS: Constitutional: No fever, no chills. Eyes: No discharge [No diplopia] ENT: No sore throat. Cardiovascular: No chest pain, no palpitations. Respiratory: No cough, shortness of breath, or wheezing. Gastrointestinal: No nausea vomiting or diarrhea. No abdominal pain. Genitourinary: No hematuria or frequency. Musculoskeletal: No back pain. Skin: No rashes. Neurological: No headache. [A 10 system review of systems was performed and is negative except for the noted findings in the HPI.] Source: Patient Exam Limitations: No limitations - Personal History Current Tetanus Diphtheria and Acellular Pertussis (TDAP): Yes - Medical/Surgical History Hx Asthma: Yes Hx Chronic Respiratory Disease: No Hx Diabetes: No Hx Cardiac Disease: No Hx Renal Disease: No Hx Cirrhosis: No Hx Alcoholism: No Hx HIV/AIDS: No Hx Splenectomy or Spleen Trauma: No Other PMH: anemia/Asthma /allergies seasonal. Uterine ablation. Medicinal marijuana. anxiety. csec x2 //tonsilectomy. internal hemorrhoids/abscess. fallopian tubes removed - Social History Smoking Status: Never smoked - Physical Exam Exam: General Appearance: Alert, no distress. Afebrile. Normal phonation. No respiratory distress. Eyes: Pupils equal and round no pallor or injection. No icterus ENT, Mouth: Mucous membranes [moist] [slightly dry] [moderately dry] Pharynx without erythema or exudate. TM Clear. Neck: No adenopathy. Supple. No JVD. Trachea in midline. Respiratory: There are no retractions, lungs are clear to auscultation. [Chest wall: Nontender to palpation. No crepitus.] Cardiovascular: Regular rate and rhythm. Abdomen: Soft and nontender, no masses, bowel sounds normal. [Femoral pulses equal]. Neurological: Ox3. No motor weakness. Sensation intact. Gait nl. Skin: Warm and dry, no rashes. Musculoskeletal: No joint swelling. Extremities: No edema. Homans sign negative. No cords. Psychiatric: Normal affect. [Patient is oriented X 3.] [There is no agitation ] Constitutional: Initial Vital Signs Temperature (C) 36.9 C 07/22/18 21:18 Heart Rate 78 07/22/18 21:18 Respiratory Rate 16 07/22/18 21:18 Blood Pressure 149/102 H 07/22/18 21:18 O2 Sat (%) 91 L 07/22/18 21:18 O2 Delivery Mode Room Air O2 (L/minute) 2 Allergies/Adverse Reactions: hydrocodone bitartrate [From Vicodin] Allergy (Verified 09/28/17 21:51) promethazine HCl [From Phenergan] Allergy (Verified 09/28/17 21:51) Sulfa (Sulfonamide Antibiotics) Allergy (Verified 09/28/17 21:51) Home Medications: Medication Instructions Recorded Cetirizine [ZyrTEC 10 mg (*)] 10 mg PO DAILY 08/26/16 Citalopram Hydrobromide [Celexa] 40 mg PO DAILY 08/26/16 Fluticasone/Salmeter 500/50Mcg 1 puffs IH BID 08/26/16 [Advair 500/50 (*)] Fluticasone Nasal [Flonase Nasal 1 spray EACHNARE BID 09/27/17 [place]] Montelukast Sodium [Singulair 10 10 mg PO DAILY 09/27/17 mg (*)] Albuterol [Proventil Inhaler HFA 1 - 2 puffs IH Q4H PRN 09/29/17 (*)] Buprenorphine HCl/Naloxone HCl 1.5 each SL BID@0700,1500 09/29/17 [Suboxone 8 mg-2 mg SL Film] Medical Decision Making - Diagnostics Imaging Results: Imaging Impressions Chest X-Ray 07/22/18 21:33 Impression: Mild bronchitis. - Data Points Medications Given: Discontinued Medications Albuterol/Ipratropium (Duoneb) 3 ml IH EDNOW ONE Stop: 07/22/18 21:25 Last Admin: 07/22/18 21:28 Dose: 3 ml Ibuprofen (Motrin) 600 mg PO EDNOW ONE Stop: 07/22/18 21:47 Last Admin: 07/22/18 21:55 Dose: 600 mg Ondansetron HCl (Zofran Odt) 4 mg PO EDNOW ONE Stop: 07/22/18 21:33 Last Admin: 07/22/18 21:34 Dose: 4 mg Ondansetron HCl (Zofran Odt) 4 mg PO EDNOW ONE Stop: 07/22/18 21:33 Last Admin: 07/22/18 21:35 Dose: Not Given Ondansetron HCl (Zofran Odt 4 Mg Prepack#2) 1 btl TAKEHOME EDNOW ONE Stop: 07/22/18 22:49 Last Admin: 07/22/18 22:56 Dose: 1 btl Point of Care Test Results: Influenza PCR Flu Nasal Swab Collection Date 07/22/18 Flu Nasal Swab Collection Time 21:35 Influenza A Result Not Detected Influenza B Result Not Detected Departure - Departure Disposition: Home, Routine, Self-Care Clinical Impression: Hypoxia, Influenza-like illness, Headache Condition: Good Instructions: Influenza (ED) Additional Instructions: You were seen by Dr. Simi Nick today. I think her headache is related to your low oxygen and your root canal. I see no evidence of infection in her mouth currently pain continue to take Tylenol and/or ibuprofen as needed for pain. You may take Zofran as needed for nausea and vomiting. Please drink plenty of fluids. Use here albuterol inhaler and other asthma medicines as prescribed. I recommend close follow-up with her primary care physician and consideration of a sleep study. Return for any worsening or new concerns, including but not limited to inability to take fluids or medications, trouble breathing or other worsening. Referrals: Patient,NotPresent [Primary Care Provider] - As per Instructions
== END 2018-07-22 22:59 | disposition home or self-care (01) ==
LOC: CED 21:15
DX: R68.89 Other general symptoms and signs (principal); R09.02 Hypoxemia; R51 Headache; R11.2 Nausea with vomiting, unspecified
CPT/HCPCS: 71046-PO

== ENCOUNTER 2018-07-23 01:05 | Emergency (ER) | payer MEDICAID ==
--- NOTE | 2018-07-23 01:39 | EDPHY ---
H & P Stated Complaint: VOMITING, VAZQUEZ, HERE EARLIER Time Seen by Provider: 07/23/18 01:12 HPI/ROS: CHIEF COMPLAINT: Vomiting recurred when went home despite Zofran therapy. Headache as well as neck and left arm pain continue HISTORY OF PRESENT ILLNESS: It is been a rough week for this woman. On , some 3 days ago she had a root canal on the left. Evidently this worked quite well and did take care of her dental pain. She was on amoxicillin and remains so. Monday, some 36 hr ago she was feeling somewhat fatigued in the afternoon and was facing the evening of wrapping [place] presents. So out of 5:00 p.m. She went to take a nap. At that point she felt well otherwise. She had been able to eat and had no episodes of vomiting or diarrhea as of yet. However she slept the whole night away. She woke up 10:00 a.m. Monday morning and noted that she had actually [facility] visit that morning-see below. Subsequently she was under quite a bit of stress during the morning as she had make multiple phone calls. Evidently her sister who had a disconnected phone was making threats of suicide to her [id number] who is on duty in [place]. Thereby she had make a call with the police department and various issues to make a wellness check on her sister. Ultimately this all settle down in by noon she was able to eat, as she had an appetite. However that point in time she had a bit of a headache which was progressive over the ensuing several hours, right hemicranial and seem to get worse and worse over a protracted period time on the order 4-5 hours. Headache was not abrupt in onset nor the thunderclap. Remained right forehead and did not radiate to the neck. While it became worse over time did not expand or migrate. She also notes that she has a bit of a neck ache. She really can't tell me when that ensued over the last 12-18 hours. Beginning around 2:00 p.m. On Monday, some 8-10 hours ago she started vomiting. This was on the order of every hour, and was food contents without any blood or dark material. She did not have any Zofran available to try. She temp to go to sleep around 8:00 p.m. And was unable to do so. At that time she started having some left arm pain without any chest pain or shortness of breath. She presented here at approximately 9:00 p.m. And was treated with oral rehydration , ODT Zofran to go as well as IV Zofran and a negative chest x-ray. Evidently on arrival her O2 saturations were somewhat low and they did hear wheezing. She is given a treatment of a DuoNeb and oxygen supplementation and then a trial off oxygen with a good O2 sat 93%. Chest x-ray as read by radiologist and reviewed by me subsequently as loaded blow showed mild bronchitic changes. No acute disease. Normal cardiac silhouette. At the time of her root canal, part of the treatment included 6 tablets of Percocet. She was take this as long as well as she was taking her Suboxone. Took a while to have her further articulate her Suboxone regimen. Once we are able to ascertain this it was evident that she has takes it twice daily 8 mg/2 mg. She goes to the clinic in the morning at 9:00 a.m. And is given a tablet for the afternoon. In point of fact she continued the Suboxone on the Monday, 2 days ago as well as Monday, however as noted below with her going to sleep so early, she missed the Monday afternoon dose. Furthermore she missed going to the Monday morning, clinic for today's dose, so she took the Sat dose Sun am. Thereby she took her Monday a finance dose on Monday and has essentially taking 1 dose daily for the last 48 hr despite the usual twice daily. As to her substance abuse she noted that she had a internal hemorrhoid repair simply abscessed has had chronic pain. Evidently this past summer she tried on the Suboxone program but as she did so for her she did not feel motivated. When she relapsed to narcotics it did not seem to fit well with her and she feeling much better on this program for the last 1 month as she is more personally motivated. Most recently she has not felt symptomatic with respect to her underlying asthma condition is not been using her inhaler much. Last steroid use was approximately 9 months. P: Headache is not worse with movement or coughing Q: Achiness R: Right forehead without radiation S: Moderate T: Gradual onset at approximately 10:11 a.m. This morning and progressive through the afternoon REVIEW OF SYSTEMS: Constitutional: No fever, no chills. Eyes: No discharge No diplopia ENT: No sore throat. Cardiovascular: No chest pain, no palpitations. Respiratory: No cough, shortness of breath, or wheezing. Gastrointestinal: No nausea vomiting or diarrhea. No abdominal pain. Genitourinary: No hematuria or frequency. Musculoskeletal: No back pain. Skin: No rashes. Neurological: No headache. A 10 system review of systems was performed and is negative except for the noted findings in the HPI. Source: Patient - Personal History LMP (Females 10-55): Now - Medical/Surgical History Hx Asthma: Yes Hx Chronic Respiratory Disease: No Hx Diabetes: No Hx Cardiac Disease: No Hx Renal Disease: No Hx Cirrhosis: No Hx Alcoholism: No Hx HIV/AIDS: No Hx Splenectomy or Spleen Trauma: No Other PMH: anemia/Asthma /allergies seasonal. Uterine ablation. Medicinal marijuana. anxiety. csec x2 //tonsilectomy. internal hemorrhoids/abscess. fallopian tubes removed - Social History Smoking Status: Never smoked Alcohol Use: None Drug Use: Marijuana (Narcotic use in remission) - Physical Exam Exam: General Appearance: Alert, no distress. Afebrile, temperature is 37.1 on my taking in oral reading.. Normal phonation. No respiratory distress. She is moderately diaphoretic with beads of sweat on her brow Eyes: Pupils equal and round no pallor or injection. No icterus ENT, Mouth: Mucous membranes slightly dry Pharynx without erythema or exudate. TM Clear. Neck: No adenopathy. Supple. No JVD. Trachea in midline. No odor of alcohol Respiratory: There are no retractions, lungs are clear to auscultation. Cardiovascular: Regular rate and rhythm. Abdomen: Soft and nontender, no masses, bowel sounds normal. . Neurological: Ox3. No motor weakness. Sensation intact. Gait nl. Skin: Warm and dry, no rashes. Musculoskeletal: No joint swelling. Extremities: No edema. Homans sign negative. No cords. Psychiatric: Normal affect. Patient is oriented X 3. There is no agitation Constitutional: Initial Vital Signs Temperature (C) 36.6 C 07/23/18 01:16 Heart Rate 86 07/23/18 01:16 Respiratory Rate 18 07/23/18 01:16 Blood Pressure 151/100 H 07/23/18 01:16 O2 Sat (%) 90 L 07/23/18 01:16 O2 Delivery Mode Room Air O2 (L/minute) 2 Allergies/Adverse Reactions: hydrocodone bitartrate [From Vicodin] Allergy (Verified 07/23/18 01:16) promethazine HCl [From Phenergan] Allergy (Verified 07/23/18 01:16) Sulfa (Sulfonamide Antibiotics) Allergy (Verified 07/23/18 01:16) Home Medications: Medication Instructions Recorded Cetirizine [ZyrTEC 10 mg (*)] 10 mg PO DAILY 08/26/16 Citalopram Hydrobromide [Celexa] 40 mg PO DAILY 08/26/16 Fluticasone/Salmeter 500/50Mcg 1 puffs IH BID 08/26/16 [Advair 500/50 (*)] Fluticasone Nasal [Flonase Nasal 1 spray EACHNARE BID 09/27/17 [place]] Montelukast Sodium [Singulair 10 10 mg PO DAILY 09/27/17 mg (*)] Albuterol [Proventil Inhaler HFA 1 - 2 puffs IH Q4H PRN 09/29/17 (*)] Buprenorphine HCl/Naloxone HCl 1.5 each SL BID@0700,1500 09/29/17 [Suboxone 8 mg-2 mg SL Film] Medical Decision Making - Diagnostics EKG Interpretation: EKG: Interpreted by me contemporaneously. Rhythm: Normal sinus rhythm. Heart rate 67 QTc 442 QRS: normal STT segment: normal T Waves: Normal Q waves insignificant Q-wave in 3 Summary: Normal Ekg Imaging Results: Chest x-ray film and report reviewed from earlier in the evening, some 3 hr ago. Nor interval change when compared to September of 2017 chest x-ray. Normal cardiac silhouette. No infiltrates. ED Course/Re-evaluation: An IV was placed. I verified her Phenergan allergy as exhibiting as dystonic symptoms. References were checked and there is a significant potential interaction between Reglan and Celexa precipitating EPS thus I made a plan of starting Ativan and Benadryl and low-dose the-0.5 in 25 mg respectively, to be given IV for symptomatic management. I reviewed the chest x-ray as noted above EKG showed normal sinus rhythm without a prolonged QT despite the fact that she has had approximately 12 mg of Zofran this evening Further discussed case pharmacist. Plan will be to give this woman a dose of Suboxone as it seems that she is having withdrawal. I reviewed her Suboxone plans in view of the holiday coming and she is to get a morning dose on the with 3 to go to cover her for . COWS score by me is 12. There is no yawning nor piloerection. She felt quite a bit better with the Ativan and Benadryl and was certainly no more diaphoretic. Thus will hydrate her while waiting for the Suboxone to arrive from the [facility] at [facility]. She was given the dose of Suboxone at approximately 3:00 a.m.. She improved markedly. Differential Diagnosis: Differential Includes but is not limited to: Subarachnoid hemorrhage, meningitis, migraine, status migraine, viral syndrome, dehydration, narcotic withdrawal. - Data Points Laboratory Results: Laboratory Results 07/23/18 01:32 07/23/18 01:32 Medications Given: Discontinued Medications Buprenorphine/Naloxone (Suboxone 8mg/2mg) 1 tab SL EDNOW ONE Stop: 07/23/18 02:22 Last Admin: 07/23/18 03:08 Dose: 1 tab Diphenhydramine HCl (Benadryl Injection) 25 mg IVP EDNOW ONE Stop: 07/23/18 01:55 Last Admin: 07/23/18 02:01 Dose: 25 mg Sodium Chloride (Ns) 1,000 mls @ 0 mls/hr IV EDNOW ONE; Wide Open PRN Reason: Protocol Stop: 07/23/18 01:56 Last Admin: 07/23/18 01:55 Dose: 1,000 mls Lorazepam (Ativan Injection) 0.5 mg IVP EDNOW ONE Stop: 07/23/18 01:55 Last Admin: 07/23/18 02:00 Dose: 0.5 mg Point of Care Test Results: Chemistry 07/23/18 01:50 POC Troponin I 0.00 ng/mL ng/mL (0.00-0.08) Blood Gas/Lactic Acid-Venous 07/23/18 01:55 POC Lactic Acid Tom 1.2 mmol/L mmol/L (0.7-2.1) Departure - Departure Disposition: Home, Routine, Self-Care Clinical Impression: Narcotic withdrawal, Dehydration, moderate Condition: Good Instructions: Dehydration (ED), Narcotic Withdrawal (ED) Additional Instructions: Once home continue ice chips in clear fluids to hydrate. On the , later this morning, when you go to the Suboxone clinic make sure you explain to them that we gave you dose at 3am in the morning. I do not expect your symptoms to reoccur in the near 12 hr. Should you start having more of the sweating or the vomiting then return. Referrals: Patient,NotPresent [Primary Care Provider] - As per Instructions
[2018-07-23] MEDS ORDERED: LORazepam 2 MG/ML INJ IVP ONE (01:54)
[2018-07-23] MEDS ORDERED: NS 1,000 ML IV ONE (01:55)
--- NOTE | 2018-07-23 02:01 | CPEKG ---
Test Reason : OPEN Blood Pressure : / mmHG Vent. Rate : 067 BPM Atrial Rate : 068 BPM P-R Int : 150 ms QRS Dur : 090 ms QT Int : 418 ms P-R-T Axes : 043 012 023 degrees QTc Int : 442 ms Sinus rhythm, Confirmed by Jerzy Longoria ([id number]) on 07/23/2018 2:01:22 AM Referred By: Confirmed By:Jerzy Longoria
[2018-07-23 02:49] LABS: PLATELET COUNT 399 10^3/uL (150-400)
[2018-07-23 04:02] VITALS: BP 122/80
== END 2018-07-23 05:32 | disposition home or self-care (01) ==
LOC: CED 01:05
DX: T40.2X5A Adverse effect of other opioids, initial encounter (principal); R11.2 Nausea with vomiting, unspecified; E86.0 Dehydration
CPT/HCPCS: 83605-PO; 84484-ER; 96374; J0574; J1200; J2060